=== PATIENT | male | born 1960 ===

== ENCOUNTER 2017-12-30 10:55 | Emergency (ER) | payer SELFPAY ==
[2017-12-30 11:10] VITALS: BMI 32.3
[2017-12-30 11:13] VITALS: TEMP 98
--- NOTE | 2017-12-30 11:40 | C.PDOC ---
History Of Present Illness 57-year-old male, presents to the emergency department with complaints of an allergic reaction. Patient states he had an outpatient CT scan with IV contrast done this morning, stating he developed an itchy rash on scalp. Patient denies any reactions from CT scan dye in past. Denies shortness of breath, cough, wheezing. No other complaints at this time. Time Seen by Provider: 12/30/17 11:10 Chief Complaint (Nursing): Allergic Reaction History Per: Patient History/Exam Limitations: no limitations Current Symptoms Are (Timing): Still Present Past Medical History Reviewed: Historical Data, Nursing Documentation, Vital Signs Vital Signs: Last Vital Signs Temp 98 F 12/30/17 11:10 Pulse 68 12/30/17 11:44 Resp 20 12/30/17 11:44 BP 119/68 12/30/17 11:44 Pulse Ox 95 12/30/17 13:32 Surgical History: Cholecystectomy - [facility] Procedures INSERTION OF INFUSION DEV INTO SUP VENA CAVA, PERC APPROACH (05/22/17) Family History: States: No Known Family Hx - Social History Hx Tobacco Use: No Hx Alcohol Use: No Hx Substance Use: No - Immunization History Hx Tetanus Toxoid Vaccination: No Hx Influenza Vaccination: Yes Hx Pneumococcal Vaccination: No Review Of Systems Constitutional: Negative for: Fever ENT: Negative for: Nose Congestion, Mouth Swelling, Throat Swelling Cardiovascular: Negative for: Chest Pain Respiratory: Negative for: Cough, Shortness of Breath Gastrointestinal: Negative for: Vomiting Skin: Positive for: Rash Physical Exam - Physical Exam Appears: Non-toxic, No Acute Distress Skin: Warm, Dry, Rash (1 hive to temporal scalp) Head: Normacephalic Eye(s): bilateral: Normal Inspection Nose: Normal Oral Mucosa: Moist Lips: Normal Appearing Throat: No Erythema, No Exudate, No Drooling, No Mass Neck: Normal ROM Chest: Symmetrical Cardiovascular: Rhythm Regular, No Murmur Respiratory: Normal Breath Sounds, No Accessory Muscle Use Extremity: Normal ROM, No Deformity, No Swelling Neurological/Psych: Oriented x3, Normal Speech ED Course And Treatment O2 Sat by Pulse Oximetry: 95 (RA) Pulse Ox Interpretation: Normal Medical Decision Making Medical Decision Making: Plan: * Benadryl * Reassess and Disposition On re-exam, the patient reports improvement of symptoms. Lungs are CTA, heart is RRR, abdomen is soft, non-tender and tolerating PO well. Ambulatory in the ED with steady gait. Follow up with the medical doctor/clinic within 1-2 days. Return if worsened. Disposition - Disposition Referrals: [facility] [Outside] Disposition: HOME/ ROUTINE Disposition Time: 11:39 Condition: GOOD Additional Instructions: Return to the ED if there is any worsening. Follow up with the medical doctor within 1-2 days. Prescriptions: DiphenhydrAMINE [Benadryl] 25 mg PO QID #28 cap Instructions: Hives Forms: [employer] (Welsh) Print Language: SERBIAN - Clinical Impression Clinical Impression: Allergic urticaria - Scribe Statement The provider has reviewed the documentation as recorded by the Scribe (Rebekah Edwards) All medical record entries made by the Scribe were at my direction and personally dictated by me. I have reviewed the chart and agree that the record accurately reflects my personal performance of the history, physical exam, medical decision making, and the department course for this patient. I have also personally directed, reviewed, and agree with the discharge instructions and disposition.
[2017-12-30 11:45] VITALS: BP 119/68; PULSE 68; RESP 20
[2017-12-30 13:32] VITALS: O2SAT 95
== END 2017-12-30 11:45 | disposition home or self-care (01) ==
LOC: C.ER 10:55
DX: L50.0 Allergic urticaria (principal)

== ENCOUNTER 2018-02-18 08:11 | Day surgery (SDC) | payer SELFPAY ==
[2018-02-18] MEDS ORDERED: Lactated Ringer's 1,000 ML IV ONE (10:18)
[2018-02-18] MEDS ORDERED: Propofol 10 mg/ml Inj (20 ML) ONE (10:21)
[2018-02-18 11:09] VITALS: TEMP 97
[2018-02-18 11:42] VITALS: BP 105/65; PULSE 56; RESP 11; O2SAT 100
== END 2018-02-18 11:55 | disposition home or self-care (01) ==
LOC: C.ENDO 08:11
PROVIDERS: ATTEND Internal Medicine Gastroenterology
DX: K59.09 Other constipation (principal); K57.80 Diverticulitis of intestine, part unspecified, with perforation and abscess without bleeding
CPT/HCPCS: 45378; J2704; J7120